=== PATIENT | male | born 1970 | race Caucasian/White ===

== ENCOUNTER 2016-09-29 15:18 | Emergency (ER) | payer SELFPAY ==
[~2016-09-29] VITALS: Ht 175.3 cm; Wt 78.0 kg
--- NOTE | 2016-09-29 16:50 | Diagnostic Imaging Report ---
Indications: Severe right knee pain for one day, no antecedent trauma per patient Technique: Coronal T1 weighted fast spin-echo and STIR, sagittal proton density weighted fast spin echo, coronal STIR, coronal, sagittal, and axial axial proton density weighted fat saturated fast spin echo sequences of the right knee were performed without IV or intra-articular gadolinium administration Findings: Comparison: None There is a 7 x 14 mm focus of subchondral impaction involving the sulcus terminalis of the peripheral aspect of the lateral femoral condyle, with significant subjacent marrow edema. Marrow edema is present in the opposing posterior lateral aspect of the lateral tibial plateau. Medial meniscus appears intact. Lateral meniscus demonstrates a vertically oriented linear tear in the periphery of its body-posterior horn junction, nondisplaced. No adjacent articular cartilage or subchondral marrow signal abnormalities. Patellar articular cartilage intact. Trochlear articular cartilage demonstrates some thinning along its medial facet with subchondral edema/cyst formation. Anterior cruciate ligament appears discontinuous and wavy in configuration. Posterior cruciate ligament, medial collateral ligament, lateral collateral complex, quadriceps and patellar tendons, medial and lateral patellar retinacula intact, unremarkable in appearance. Moderate knee joint/suprapatellar effusion. No obvious intra-articular loose body. No evidence of Gomez's cyst. Surrounding musculature and subcutaneous soft tissues unremarkable. IMPRESSION: Complete tear of the anterior cruciate ligament Subchondral impaction injury lateral femoral condyle with subjacent and opposing marrow edema Nondisplaced tear of the body-posterior horn junction of the medial meniscus Moderate knee joint effusion Above findings compatible with pivot-shift mechanism of injury Partial chondrosis of the medial trochlear facet Findings discussed with Dr. Hanson, physician, time of this dictation
[2016-09-29 17:03] VITALS: BP 134/84
--- NOTE | 2016-10-01 04:45 | Emergency Room Report ---
History of Present Illness General Chief Complaint: Pain Source: Patient Present Illness HPI Patient presents with complaints of right knee pain worsening over the past several days Patient was seen by his primary physician Patient had complaint of fever and also swelling And was sent in for further evaluation On further discussion patient also reports injury while playing soccer over 7- 10 days ago However has been ambulatory Allergies: Coded Allergies: No Known Allergies (Unverified , 09/29/16) Patient History Past Medical History: see triage record Pertinent Family History: none Reviewed Nursing Documentation: PMH: Agreed, PSxH: Agreed Nursing Documentation-PMH Past Medical History: No Stated History Review of Systems All Other Systems: negative except mentioned in HPI Physical Exam Vital Signs Date Time Temp Pulse Resp B/P Pulse Ox O2 Delivery O2 Flow Rate FiO2 09/29/16 16:53 98.8 79 16 134/84 99 Room Air Sp02 EP Interpretation: reviewed, normal General Appearance: well appearing, no apparent distress Head: normocephalic, atraumatic Eyes: bilateral eye EOMI, bilateral eye PERRL ENT: hearing grossly normal, normal pharynx, TMs + canals normal, uvula midline Neck: full range of motion, supple, no meningismus, no bony tend Respiratory: lungs clear, normal breath sounds, no rhonchi, no respiratory distress, no retraction, no accessory muscle use Cardiovascular #1: normal peripheral pulses, regular rate, rhythm, no edema, no gallop, no JVD, no murmur Gastrointestinal: normal bowel sounds, non tender, soft, no mass, no organomegaly, non-distended, no guarding, no hernia, no pulsatile mass, no rebound Genitourinary: no CVA tenderness Musculoskeletal: swelling - Evidence of joint effusion of the right knee, no obvious erythema, there is no obvious laxity on anterior draw test Neurologic: oriented x3, responsive, wire threader III-XII nml as tested, motor strength/ tone normal, sensory intact Psychiatric: mood/affect normal Skin: palpation normal Lymphatic: normal inspection, no adenopathy Medical Decision Making Diagnostic Impression: Primary Impression: knee pain Additional Impressions: ACL tear Knee effusion, right ER Course Multiple differentials were considered Given the, patient's primary physician concerned MRI was obtained There appears to be significant injury to the anterior cruciate ligament, and trauma to the knee With further discussion, the fever and swelling is likely not related to infectious pathology At this time there is fusion is not large enough for training in the emergency room Patient was provided copy of MRI and requires close outpatient followup , CT/MRI/US Diagnostic Results CT/MRI/US Diagnostic Results : Impression MRI right kneeIMPRESSION: Complete tear of the anterior cruciate ligament Subchondral impaction injury lateral femoral condyle with subjacent and opposing marrow edema Nondisplaced tear of the body-posterior horn junction of the medial meniscus Moderate knee joint effusion Above findings compatible with pivot-shift mechanism of injury Partial chondrosis of the medial trochlear facet Last Vital Signs Date Time Temp Pulse Resp B/P Pulse Ox O2 Delivery O2 Flow Rate FiO2 09/29/16 17:03 98.8 16 134/84 99 Room Air 09/29/16 16:53 79 Status: improved Disposition: HOME, SELF-CARE Condition: Improved Referrals: NOT CHOSEN IPA/MD,REFERRING (PCP) Patient Instructions: Anterior Cruciate Ligament Tear With Rehab-SportsMed, Knee Pain, [id number] Additional Instructions: Patient is provided with the discharge instructions notified to follow up with primary doctor in the next 2-3 days otherwise return to the er with any worsening symptoms. Please note that this report is being documented using [employer] technology. This can lead to erroneous entry secondary to incorrect interpretation by the dictating instrument. MELISA TREJO D.O. Oct 01, 2016 04:45
== END 2016-09-29 17:15 | disposition home or self-care (01) ==
LOC: EMR 15:48
DX: S83.511D Sprain of anterior cruciate ligament of right knee, subsequent encounter (principal); X58.XXXD Exposure to other specified factors, subsequent encounter; M25.461 Effusion, right knee
CPT/HCPCS: 99284